=== PATIENT | male | born 1990 | race Caucasian/White ===

== ENCOUNTER 2017-03-19 23:14 | Emergency (ER) | payer MEDICARE, MEDICAID ==
[~2017-03-19] VITALS: Ht 162.6 cm; Wt 88.9 kg
[2017-03-19] MEDS ORDERED: METFORMIN HCL500 MG (23:36)
[2017-03-19] MEDS ORDERED: GLIPIZIDE 10 MG10 MG (23:36)
[2017-03-20 00:20] VITALS: BP 118/74
[2017-03-20] MEDS ORDERED: TRIAMCINOLONE A15 GM TOP (00:20)
== END 2017-03-20 00:27 | disposition home or self-care (01) ==
LOC: M.ERS 23:14
DX: L24.0 Irritant contact dermatitis due to detergents (principal); E11.9 Type 2 diabetes mellitus without complications; Z88.0 Allergy status to penicillin